=== PATIENT | male | born 1950 ===

== ENCOUNTER 2019-02-27 11:01 | Day surgery (SDC) | payer BC, OTHER ==
[~2019-02-27 11:01] MED LIST: Acetaminophen TAB* 325 MG PO PRN; Buffered Lidocaine 1% SYRIN* 1 ML/SYRINGE INTRADERM ONE; Cyclopentolate 1% OPTH.SOL* 2 ML BTL ONE; Ketorolac 0.5% OPHTH (NF) 0.5 % 5 ML BTL ONE; Lidocaine 1%* 5 ML VIAL ONE; Lidocaine 2% EPI 1:200000 MPF*10-20 ML VIAL ONE; Neomycin/Polymy/Dex OPTH.SUSP* MAXITROL 0.1% 5 ML ONE; Phenylephrine OPHTH SOL 2.5%* 2 ML ONE; Povidone Iodine 5% OPTH* 30 ML BTL ONE; Proparacaine 0.5% OPHTH.SOL* 15 ML BTL ONE; acetaZOLAMIDE TAB* 250 MG ONE
[2019-02-27] MEDS ORDERED: Metoprolol Succinate XL TAB* 100 MG PO ONE (13:34)
[2019-02-27] MEDS ORDERED: Metoprolol Succinate XL TAB* 25 MG ONE (13:37)
[2019-02-27] MEDS ORDERED: Metoprolol Succinate XL TAB* 50 MG ONE (13:37)
[2019-02-27] MEDS ORDERED: Midazolam* 1 MG/ML 2 ML VIAL (2 MG) ONE (13:41)
[2019-02-27 14:29] VITALS: BP 134/81
--- NOTE | 2019-02-27 20:07 | OP ---
DATE OF OPERATION: 02/27/19 - [facility] DATE OF : 54 SURGEON: Scot Terry M.D. PREOPERATIVE DIAGNOSIS: Cataract and glaucoma, left eye. POSTOPERATIVE DIAGNOSIS: Cataract and glaucoma, left eye. OPERATIVE PROCEDURE: Extracapsular cataract extraction with IOL and iStent, left eye. DESCRIPTION OF PROCEDURE: The patient was brought to the operating room after being given 1/2% Alcaine with epinephrine drops in the preoperative area. The eye was prepped and draped in the usual sterile fashion. Sterile drape and eyelid speculum were placed. Again, topical 1/2% Alcaine with epinephrine was given. A paracentesis incision was made at the 3 o'clock position with the No.75 blade. Clear cornea incision 2.2 x 2.2-mm was created at the 6 o'clock position starting at the anterior limbus using the 2.2-mm keratome. The anterior chamber was irrigated with 0.4 mL of 1% non-preservative intracameral lidocaine and filled with DisCoVisc. A capsulorrhexis was completed using the cystotome and the Utrata forceps. Hydrodissection was performed with balanced salt solution. The lens nucleus was removed with the Phacoemulsification handpiece without incident. Cortex was removed with the irrigation-aspiration handpiece. The capsular bag was re-inflated using DisCoVisc and an [id number] 17 implant was inserted with the shooter, oriented to the 180-degree meridian followed by iStent inject placed at the 8 o'clock and 10 o'clock positions. The irrigation-aspiration handpiece was used to remove all residual DisCoVisc. The eye was refilled with balanced salt solution and the wound checked and found to be watertight. Topical Maxitrol drops were given. [id number]/[facility] #: [id number] HUMBERTO
== END 2019-02-27 14:30 | disposition home or self-care (01) ==
LOC: OREAST 11:01
PROVIDERS: ATTEND Specialist
DX: H25.812 Combined forms of age-related cataract, left eye (principal); H40.1131 Primary open-angle glaucoma, bilateral, mild stage; H40.1121 Primary open-angle glaucoma, left eye, mild stage; I48.91 Unspecified atrial fibrillation; Z79.01 Long term (current) use of anticoagulants; I10 Essential (primary) hypertension; E03.9 Hypothyroidism, unspecified; E78.2 Mixed hyperlipidemia; I25.10 Atherosclerotic heart disease of native coronary artery without angina pectoris; I73.9 Peripheral vascular disease, unspecified; G47.33 Obstructive sleep apnea (adult) (pediatric); M19.90 Unspecified osteoarthritis, unspecified site
CPT/HCPCS: A9270-GY; C1783; J2250; V2787

== ENCOUNTER 2019-03-06 07:46 | Day surgery (SDC) | payer BC, OTHER ==
[~2019-03-06 07:46] MED LIST changes: -Cyclopentolate 1% OPTH.SOL* 2 ML BTL ONE; -Ketorolac 0.5% OPHTH (NF) 0.5 % 5 ML BTL ONE; -Lidocaine 1%* 5 ML VIAL ONE; -Lidocaine 2% EPI 1:200000 MPF*10-20 ML VIAL ONE; -Neomycin/Polymy/Dex OPTH.SUSP* MAXITROL 0.1% 5 ML ONE; -Phenylephrine OPHTH SOL 2.5%* 2 ML ONE; -Povidone Iodine 5% OPTH* 30 ML BTL ONE; -Proparacaine 0.5% OPHTH.SOL* 15 ML BTL ONE; -acetaZOLAMIDE TAB* 250 MG ONE
[2019-03-06] MEDS ORDERED: Midazolam* 1 MG/ML 2 ML VIAL (2 MG) ONE (09:42)
[2019-03-06 11:00] VITALS: BP 134/86
--- NOTE | 2019-03-06 12:36 | OP ---
OPERATIVE NOTE: DATE OF OPERATION: 03/06/19 DATE OF : 54 SURGEON: Scot Terry M.D. PREOPERATIVE DIAGNOSIS: Cataract and glaucoma, right eye. POSTOPERATIVE DIAGNOSIS: Cataract and glaucoma, right eye. OPERATIVE PROCEDURE: Extracapsular cataract extraction with intraocular lens implant and iStent, rig ht eye. PROCEDURE: The patient was brought to the operating room after being given 1/2% Alcaine with epineph rine drops in the preoperative area. The eye was prepped and draped in the usual sterile fashion. S terile drape and eyelid speculum were placed. Again, topical 1/2% Alcaine with epinephrine was given . A paracentesis incision was made at the 9 o'clock position with the No.75 blade. Clear cornea inc ision 2.2 x 2.2-mm was created at the 12 o'clock position starting at the anterior limbus using the 2 .2-mm keratome. The anterior chamber was irrigated with 0.4 mL of 1% non-preservative intracameral l idocaine and filled with DisCoVisc. A capsulorrhexis was completed using the cystotome and the Utrat a forceps. Hydrodissection was performed with balanced salt solution. The lens nucleus was removed w ith the Phacoemulsification handpiece without incident. Cortex was removed with the irrigation-aspir ation handpiece. The capsular bag was re-inflated using DisCoVisc and an [id number] 18.5 oriented to the 173 degree meridian followed by an iStent inject placed at the 1 o'clock and 4 o'clock position with its shooter. The patient had horizontal reference alaniz in a seated position in the preoperative are a. The irrigation-aspiration handpiece was used to remove all residual DisCoVisc. The eye was refil led with balanced salt solution and the wound checked and found to be watertight. Topical Maxitrol d rops were given. [id number]/[facility] #: [id number]
[2019-03-06] MEDS ORDERED: Cyclopentolate 1% OPTH.SOL* 2 ML BTL ONE (13:56)
[2019-03-06] MEDS ORDERED: acetaZOLAMIDE TAB* 250 MG ONE (13:56)
[2019-03-06] MEDS ORDERED: Ketorolac 0.5% OPHTH (NF) 0.5 % 5 ML BTL ONE (13:56)
[2019-03-06] MEDS ORDERED: Povidone Iodine 5% OPTH* 30 ML BTL ONE (13:56)
[2019-03-06] MEDS ORDERED: Lidocaine 1%* 5 ML VIAL ONE (13:56)
[2019-03-06] MEDS ORDERED: Phenylephrine OPHTH SOL 2.5%* 2 ML ONE (13:56)
[2019-03-06] MEDS ORDERED: Neomycin/Polymy/Dex OPTH.SUSP* MAXITROL 0.1% 5 ML ONE (13:56)
[2019-03-06] MEDS ORDERED: Proparacaine 0.5% OPHTH.SOL* 15 ML BTL ONE (13:56)
[2019-03-06] MEDS ORDERED: Lidocaine 2% EPI 1:200000 MPF*10-20 ML VIAL ONE (13:56)
== END 2019-03-06 10:53 | disposition home or self-care (01) ==
LOC: OREAST 07:46
PROVIDERS: ATTEND Specialist
DX: H25.811 Combined forms of age-related cataract, right eye (principal); H40.1111 Primary open-angle glaucoma, right eye, mild stage; E03.9 Hypothyroidism, unspecified; E78.00 Pure hypercholesterolemia, unspecified; E11.9 Type 2 diabetes mellitus without complications; Z79.84 Long term (current) use of oral hypoglycemic drugs; Z79.01 Long term (current) use of anticoagulants; I10 Essential (primary) hypertension; I25.10 Atherosclerotic heart disease of native coronary artery without angina pectoris; Z95.5 Presence of coronary angioplasty implant and graft
CPT/HCPCS: A9270-GY; C1783; J2250; V2787

== ENCOUNTER 2019-11-16 17:16 | Emergency (ER) | payer BC ==
--- OUTSIDE RECORDS SUMMARY | 2019-11-16 17:35 | XMS REPORT | Continuity of Care Document ---
:1950 Author Organization [facility] Care Team Providers Name Role Phone ANDRES SALMERON Admitting Physician ANDRES SALMERON Attending Physician KELSY BROWN Primary Care Physician Allergies and Intolerances No Allergy Data in the System Medications No Known Medications Medications At Time Of Discharge No data in the system Problems No Data in the system Procedures No data in the system Results No data in the system Social History Code Code System Social History Observation Description Dates Observed [id number] SNOMED CT Current Smoking Status Never smoker UNK AdministrativeGender Sex Assigned At Unknown Vital Signs No data in the system Goals Section No data in the system Health Concerns No data in the systemEncounter Diagnosis Date Code Code System Diagnosis Status Z95.1 ICD10 [employer] [employer] Active Advance Directives *RHIO - CONSENT IS YES Directive Type Effective Date Bench Hand Machine Notes Supporting Document Name Address Phone No Directive Type 11/19/2015 3:13:52 Not Specified Not Specified Not Specified None No specified PM Encounters Encounter Diagnosis Location Date [facility] 09/12/2019 Family History Family history not obtained Functional Status No data in the system Immunizations No data in the system Medical Equipment No data in the system Mental Status No data in the system Assessment and Plan Assessments No data in the systemPlan Of Treatment No data in the systemPending Tests No data in the system Hospital Discharge Instructions No data in the system Reason for Visit Reason for Visit CABG 08/06/19 Z95.1
--- OUTSIDE RECORDS SUMMARY | 2019-11-16 17:35 | XMS REPORT | Continuity of Care Document ---
:1950 External Reference #:[id number] Author Name Gloria Triana MD Address [address] [place] [address] Care Team Providers Name Role Phone Len Patrick MD Care Team Information Housing And Residence Life Director [phone] Delon Aggarwal MD - Urology Care Team Information Housing And Residence Life Director [phone] Problems Active Problems Provider Date Benign essential hypertension Cricket Chapin MD Onset: 11/11/2005 Hypothyroidism Cricket Chapin MD Onset: 08/09/2006 Mixed hyperlipidemia Cricket Chapin MD Onset: 08/09/2006 Coronary arteriosclerosis Cricket Chapin MD Onset: 08/09/2006 Note: Angioplasty and stenting X 3 in 2000. Angioplasty and stenting LAD in 2004 Peripheral vascular disease Jacki Kent MD Onset: 12/24/2013 Note: TIA (vision loss in right eye) Impaired fasting glycaemia Jcaki Kent MD Onset: 12/24/2013 Morbid obesity Jacki Kent MD Onset: 02/28/2014 Kidney stone Jacki Kent MD Onset: 02/28/2014 Atrial fibrillation Jacki Kent MD Onset: 03/26/2014 Obstructive sleep apnea syndrome Gloria Triana MD Onset: 05/08/2017 Type 2 diabetes mellitus Gloria Triana MD Onset: 01/06/2017 Essential hypertension Jacki Kent MD Onset: 09/28/2015 Social History Type Date Description Comments Sex Unknown Tobacco Use Start: Unknown Never Smoked Cigarettes ETOH Use Occasionally consumes alcohol Recreational Drug Use Never Used Drugs Tobacco Use Start: Unknown Patient has never smoked Smoking Status Reviewed: 10/08/19 Patient has never smoked Exercise Limitations Joint Pain Exercise Limitations With Walking But Does DO Some Sun Exposure moderate amount of sun exposure Sun Exposure Does not use sunscreen Seat Belt/Car Seat never uses car seat Allergies, Adverse Reactions, Alerts Description No Known Drug Allergies Medications Active Medications SIG Qnty Indications Ordering Date Provider Hydrochlorothiazide 1 by mouth every 90caps R60.0 [facility], 12.5mg tu, th, sat, sun MD Brice Pantoja Capsules Multivitamin Adult 1 by mouth every [facility], Tablets day MD Brice Pantoja Amlodipine Besylate 1 by mouth every [facility] 2.[facility] MD Brice Pantoja Tablets Eliquis 1 by mouth twice a 60tabs I48.20 [facility], 5mg Tablets day MD Brice Pantoja Furosemide 1 by mouth 3x/wk 90tabs I25.10 [facility], 40mg Tablets MD Brice Pantoja Metoprolol Tartrate take 1 tablet by 180tabs I48.20 [facility] [place], 25mg mouth twice a day MD Brice Pantoja Tablets Atorvastatin Calcium 1 by mouth every 90tabs E78.2 [facility], 80[facility] day MD Brice Pantoja Tablets O2 AT 2 L n/C [facility], MD Brice Pantoja Shingrix 2 shot series 2units [facility], 50mcg/0.5ML Suspension MD Brice Pantoja Rec Carpal Tunnel Wrist bilat 2units G56.03 [facility], Stabilizer/Large/X-Large MD Brice Pantoja Misc Levothyroxine Sodium 1 by mouth every 90tabs E03.9 [facility], 175mcg other day-alt with MD Brice Pantoja Tablets 200 mcg Qtern 1 po qd 90tabs E11.9 [facility], 10-5mg Tablets MD Brice Pantoja Vascepa 2 by mouth bid. 360caps E78.2 [facility], 1gm Capsules MD Brice Pantoja Diclofenac Sodium apply 1 gram per 300gm M25.552 [facility], 1% Gel joint four times a Gloria M,MD 9 day as needed for pain Dental Evaluation for mad/oat dx: G47.33 [facility], severe gin call Dr Gloria Monroe MD 8 Michael Pismichellerowski Cpap 10 cm G47.33 [facility], Gloria Monroe MD 7 Forearm Band dx: RIGHT medial 1units M77.01 [facility], epicondylitis Gloria Monroe MD 7 Aspirin Ec 1 by mouth every I25.10 [facility], 81mg Tablets DR suzi Monroe MD 7 Levothyroxine Sodium take one tablet by 90tabs E03.9 [facility], 200mcg mouth every other Gloria Monroe MD 7 Tablets day-alt with 175 Nitrotab use as directed 25tabs I25.9 [facility], 0.4mg Tablets MD Cricket 5 I25.10 History Medications Work Note This pt had major [facility] [place], 09/02/2019 - cardiovascular Gloria Monroe MD 10/08/2019 surgery in July and remains unable to work until f/u cardiology 09/16 Ferrous Gluconate 1 by mouth bid 90tabs I25.10 [facility], 08/20/2019 - Gloria Monroe MD 10/08/2019 324(38Fe) mg Tablets Folic Acid 1 by mouth every day 30tabs I25.10 [facility], 08/20/2019 - 1mg Gloria Monroe MD 10/08/2019 Tablets Ascorbic Acid 1 by mouth every day I25.10 [facility] 08/20/2019 - Gloria Monroe MD 10/08/2019 500mg Tablets Amlodipine 1 by mouth every day 30tabs I10 [facility], 08/20/2019 - Besylate Gloria Monroe MD 09/12/2019 5mg Tablets Metoprolol Take One Tablet By 90tabs [facility], 06/13/2019 - Succinate ER Mouth Every Day Gloria Monroe MD 08/20/2019 100mg Tablets ER 24HR Immunizations CPT Code Status Date Vaccine Lot # [id number] Given 07/23/2019 Influenza Vac, Quadrivalent, Split, 0.5mL Dosage, [id number] Im Use 92555 Given 07/23/2019 Prevnar 13 Pneumococal Conjugate Vaccine [id number] 10722 Given 07/23/2018 Influenza Vac, Quadrivalent, Split, 0.5mL Dosage, [id number] Im Use 29493 Given 08/07/2017 Influenza Vac, Quadrivalent, Split, 0.5mL Dosage, [id number] Im Use 16647 Given 08/05/2016 Influenza Vac, Quadrivalent, Split, 0.5mL Dosage, [id number] Im Use 59632 Given 08/28/2015 Influenza Vac, Quadrivalent, Split, 0.5mL Dosage, Im Use 26124 Given 08/28/2015 Influenza Vac, Quadrivalent, Split, 0.5mL Dosage, [id number] Im Use Q2038 Given 08/27/2014 Fluzone Trivalent Immunization [id number] 59765 Given 02/26/2014 Pneumococcal 23 Immunization Adult Or [id number] Immunosuppressed Patient 51991 Given 10/30/2013 Zoster (Zostavax) Q2038 Given 09/10/2013 Fluzone Trivalent Immunization [id number] Q2038 Given 11/07/2012 Fluzone Trivalent Immunization [id number] 16353 Given 05/21/2012 Tdap (Adacel) Ages 7 And Above Only Q2038 Given 08/10/2011 Fluzone Trivalent Immunization [id number] 05697 Given 09/20/2010 Afluria Or Fluvirin Flu Vac Intramuscular [id number] 12418 Given 08/18/2008 Afluria Or Fluvirin Flu Vac Intramuscular [id number] 43999 Given 08/01/2007 Afluria Or Fluvirin Flu Vac Intramuscular 26457 Given 08/01/2007 Influenza, Preservative Free 3 Years And Older 32843 Given 07/25/2003 Afluria Or Fluvirin Flu Vac Intramuscular Vital Signs Date Vital Result Comment 10/08/2019 9:01am Weight 269.00 lb Heart Rate 80 /min BP Systolic 128 mmHg BP Diastolic 82 mmHg Height 68 inches 5'8" BMI (Body Mass Index) 40.9 kg/m2 08/20/2019 10:04am Body Temperature 98.3 F Weight 273.00 lb Heart Rate 76 /min BP Systolic 112 mmHg BP Diastolic 80 mmHg Height 68 inches 5'8" O2 % BldC Oximetry 98 % O2 Saturation Level with Exercise 9296 % BMI (Body Mass Index) 41.5 kg/m2 Results Test Acquired Date Facility Test Result H/L Range Note Laboratory test 10/08/2019 [facility] Hemoglobin A1c <pending> finding Laboratory test 10/08/2019 [facility] TSH <pending> finding Basic (BMP) 07/23/2019 [facility] Sodium 141 mmol/L 135-146 1, 2 Potassium 4.1 mmol/L 3.5-5.2 Chloride# 100 mmol/L 97-110 3 Carbon Dioxide 25 mmol/L 24-34 Glucose 158 mg/dL High 70-105 BUN 18 mg/dL 6-26 Creatinine 1.4 mg/dL 0.5-1.4 Calcium 9.7 mg/dL 8.5-10.5 4 Female Egfr 39 Low >60 5 Male Egfr 53 Low >60 6 Anion Gap 16 mmol/L High 5-15 7 Hemoglobin A1c 07/23/2019 [facility] Hemoglobin A1c 6.8 % High 4.1-5.9 Estimated Average Glucose Calc 148 mg/dL High 71-140 Laboratory test finding 07/23/2019 [facility] TSH 1.08 uIU/mL 0.35-4.94 Basic (BMP) 04/22/2019 [facility] Sodium 144 mmol/L 135-146 8, 9 Potassium 4.9 mmol/L 3.5-5.2 Chloride# 102 mmol/L 97-110 10 Carbon Dioxide 31 mmol/L 24-34 Glucose 131 mg/dL High 70-105 BUN 23 mg/dL 6-26 Creatinine 1.3 mg/dL 0.5-1.4 Calcium 9.9 mg/dL 8.5-10.5 11 Female Egfr 44 Low >60 12 Male Egfr 59 Low >60 13 Anion Gap 11 mmol/L 5-15 14 Hemoglobin A1c 04/22/2019 [facility] Hemoglobin A1c 7.2 % High 4.1-5.9 Estimated Average Glucose Calc 160 mg/dL High 71-140 Lipid Treatment 04/22/2019 [facility] Cholesterol 129 mg/dL 50-199 Triglycerides 270 mg/dL High 30-200 HDL 26 mg/dL Low 29-71 15 Chol/ HDL Ratio 4.9 ratio 4.0-6.7 VLDL 54 mg/dL High 2-29 LDL (Calc) 49 mg/dL 20-99 16 Alt 17 U/L 3-42 Ast 22 U/L 8-42 Laboratory test finding 04/22/2019 [facility] TSH 0.20 uIU/mL Low 0.35-4.94 1 Specimen received unspun 1 SST This sample is drawn by:NB. 2 Updated reference range on new analyzer 3 Updated reference range on new analyzer 4 Updated reference range 02-27-2019 5 Concerning GFR Guidelines for Americans: Normal function or mild renal disease, if clinically at risk: >/= 60 mL/min Moderately decreased: 30-59 Severely decreased: 15-29 Renal failure: <15 There is reduced accuracy above 60ml/min/1.73 m squared, but the numeric value may be clinically useful in the near 60 range 6 Concerning GFR Guidelines: Normal function or mild renal disease, if clinically at risk: >/= 60 mL/min Moderately decreased: 30-59 Severely decreased: 15-29 Renal failure: <15 There is reduced accuracy above 60ml/min/1.73 m squared, but the numeric value may be clinically useful in the near 60 range Glomerular Filtration Rate (GFR) is estimated based on the CKD-EPI equation, which assumes a steady state for creatinine as recommended by the National Kidney Disease Education Program in conjunction with the National Institutes of Health and the National Kidney Foundation. Clinical conditions in which it may be necessary to measure GFR by using clearance methods include extremes of age and body size, severe malnutrition or obesity, diseases of skeletal muscle, paraplegia or quadriplegia, vegetarian diet, rapidly changing kidney function, and calculation of the dose of potentially toxic drugs that are excreted by the kidneys. 7 Updated Reference Range 8 This sample is drawn by:NOLBERTO. 9 Updated reference range on new analyzer 10 Updated reference range on new analyzer 11 Updated reference range 02-27-2019 12 Concerning GFR Guidelines for Americans: Normal function or mild renal disease, if clinically at risk: >/= 60 mL/min Moderately decreased: 30-59 Severely decreased: 15-29 Renal failure: <15 There is reduced accuracy above 60ml/min/1.73 m squared, but the numeric value may be clinically useful in the near 60 range 13 Concerning GFR Guidelines: Normal function or mild renal disease, if clinically at risk: >/= 60 mL/min Moderately decreased: 30-59 Severely decreased: 15-29 Renal failure: <15 There is reduced accuracy above 60ml/min/1.73 m squared, but the numeric value may be clinically useful in the near 60 range Glomerular Filtration Rate (GFR) is estimated based on the CKD-EPI equation, which assumes a steady state for creatinine as recommended by the National Kidney Disease Education Program in conjunction with the National Institutes of Health and the National Kidney Foundation. Clinical conditions in which it may be necessary to measure GFR by using clearance methods include extremes of age and body size, severe malnutrition or obesity, diseases of skeletal muscle, paraplegia or quadriplegia, vegetarian diet, rapidly changing kidney function, and calculation of the dose of potentially toxic drugs that are excreted by the kidneys. 14 Updated Reference Range 2-2017 15 Per NCEP ATP III Guidelines: Results lower than 40 mg/dL are suggestive of increased risk for coronary artery disease. Results > or = to 60 mg/dL are considered a negative risk factor. 16 Per NCEP ATP III Guidelines: Normal Population <130 Patients with medical conditions: CHD/DM Optimal: <100 Borderline high: 130-159 High: 160-189 Very high: >189 Procedures Date Code Description Status 10/10/2013 [id number] Colonoscopy Completed 12/11/2012 [id number] Colonoscopy Completed Medical Devices Description No Information Available Encounters Type Date Location Provider Dx Diagnosis Office Visit 07/23/2019 Gloria Mccullough E66.01 Morbid (severe) 1:00p MD Fer obesity due to excess calories E11.9 Type 2 diabetes mellitus without complications E03.9 Hypothyroidism, unspecified I48.2 Chronic atrial fibrillation E78.2 Mixed hyperlipidemia M25.552 Pain in LEFT hip I10 Essential (primary) hypertension Z13.31 Encounter for screening for depression G56.03 Carpal tunnel syndrome, bilateral upper limbs Z23 Encounter for immunization Z68.41 Body mass index (BMI) 40.0-44.9, adult Office Visit 04/22/2019 2:15p Gloria Mccullough E66.01 Morbid ( severe) MD Fer obesity due to excess calories E11.9 Type 2 diabetes mellitus without complications I25.10 [facility] heart disease [place] coronary artery w/o ang pctrs E78.2 Mixed hyperlipidemia E03.9 Hypothyroidism, unspecified I48.2 Chronic atrial fibrillation I10 Essential (primary) hypertension G47.33 Obstructive sleep apnea (adult) (pediatric) M25.552 Pain in LEFT hip Z68.41 Body mass index (BMI) 40.0-44.9, adult Assessments Date Code Description Provider 10/08/2019 E66.01 Morbid (severe) obesity due to excess Gloria Triana MD calories 10/08/2019 I10 Essential (primary) hypertension Gloria Triana MD 10/08/2019 E11.9 Type 2 diabetes mellitus without Gloria Triana MD complications 10/08/2019 I65.21 Occlusion and stenosis of RIGHT carotid Gloria Triana MD artery 10/08/2019 I25.10 Atherosclerotic heart disease of [place] Gloria Triana MD coronary artery without angina pectoris 10/08/2019 E78.2 Mixed hyperlipidemia Gloria Triana MD 10/08/2019 I48.20 Chronic atrial fibrillation, unspecified Gloria Triana MD 10/08/2019 E03.9 Hypothyroidism, kurtisified Gloria Triana MD 10/08/2019 G47.33 Obstructive sleep apnea (adult) (pediatric) Gloria Triana MD 10/08/2019 R60.0 Localized edema Gloria Triana MD 10/08/2019 Z68.41 Body mass index (BMI) 40.0-44.9, adult Gloria Triana MD 08/20/2019 E66.01 Morbid (severe) obesity due to excess Gloria Triana MD calories 08/20/2019 I65.21 Occlusion and stenosis of RIGHT carotid Gloira Triana MD artery 08/20/2019 I25.10 Atherosclerotic heart disease of [place] Gloria Triana MD coronary artery without angina pectoris 08/20/2019 I48.20 Chronic atrial fibrillation, unspecified Gloria Triana MD 08/20/2019 I10 Essential (primary) hypertension Gloria Triana MD 08/20/2019 E78.2 Mixed hyperlipidemia Gloria Triana MD 08/20/2019 E11.9 Type 2 diabetes mellitus without Gloria Triana MD complications 08/20/2019 Z68.41 Body mass index (BMI) 40.0-44.9, adult Gloria Triana MD 07/23/2019 E66.01 Morbid (severe) obesity due to excess Gloria Triana MD calories 07/23/2019 E11.9 Type 2 diabetes mellitus without Gloria Triana MD complications 07/23/2019 E03.9 Hypothyroidism, kurtisified Gloria Triana MD 07/23/2019 I48.2 Chronic atrial fibrillation Gloria Triana MD 07/23/2019 E78.2 Mixed hyperlipidemia Gloria Triana MD 07/23/2019 M25.552 Pain in LEFT hip Gloria Triana MD 07/23/2019 I10 Essential (primary) hypertension Gloria Triana MD 07/23/2019 Z13.31 Encounter for screening for depression Gloria Triana MD 07/23/2019 G56.03 Carpal tunnel syndrome, bilateral upper Gloria Triana MD limbs 07/23/2019 Z23 Encounter for immunization Gloria Triana MD 07/23/2019 Z68.41 Body mass index (BMI) 40.0-44.9, adult Gloria Triana MD 07/23/2019 E11.9 Type 2 diabetes mellitus without [facility] complications 04/22/2019 E66.01 Morbid (severe) obesity due to excess Gloria Triana MD calories 04/22/2019 E11.9 Type 2 diabetes mellitus without Gloria Triana MD complications 04/22/2019 I25.10 Atherosclerotic heart disease of [place] Gloria Triana MD coronary artery with 04/22/2019 E78.2 Mixed hyperlipidemia Gloria Triana MD 04/22/2019 E03.9 Hypothyroidism, unspecified Gloria Triana MD 04/22/2019 I48.2 Chronic atrial fibrillation Gloria Triana MD 04/22/2019 I10 Essential (primary) hypertension Gloria Triana MD 04/22/2019 G47.33 Obstructive sleep apnea (adult) (pediatric) Gloria Triana MD 04/22/2019 M25.552 Pain in LEFT hip Gloria Triana MD 04/22/2019 Z68.41 Body mass index (BMI) 40.0-44.9, adult Gloria Triana MD 04/22/2019 E11.9 Type 2 diabetes mellitus without [facility] complications 04/22/2019 E03.9 Hypothyroidism, unspecified [facility] Plan of Treatment Future Appointment(s):01/07/2020 1:15 pm - Gloria Triana MD at [id number]/26 1:00 pm - Gloria Triana MD at Ueefbx7510/08/2019 - Gloria Triana MDE66.01 Morbid (severe) obesity due to excess hzkrvuxsZ57 Essential (primary) hypertensionFollow up:3 mos as AWV/EV/PEE11.9 Type 2 diabetes mellitus without webtdoisnbrnbB18.21 Occlusion and stenosis of RIGHT carotid qtxetwK25.10 Atherosclerotic heart disease of [place] coronary artery without angina cvslvkokV27.2 Mixed lqwyvbtmlsweimB66.20 Chronic atrial fibrillation, xgemjtoebwdL91.9 Hypothyroidism, tbsmwcofrxfH42.33 Obstructive sleep apnea ( adult) (pediatric)R60.0 Localized edemaNew Medication:Hydrochlorothiazide 12.5 mg - 1 by mouth every , , sat, sunZ68.41 Body mass index (BMI) 40.0-44.9, adult Functional Status Description No Information Available Mental Status Description No Information Available Referrals Refer to Reason for Referral Status Appt Date Supervising Chef Created Tracking Igor Busby HIP PAIN 07/30-PER TERI AT [facility] THERE IS A FLAG ON Created ACCT AND PT NEEDS TO CALL TO SCHEDULE--PH#[phone]. LVM FOT PT TO CALL OFFICE TO ADVISE-[facility] [address] [place], [place] [address] [phone]
--- OUTSIDE RECORDS SUMMARY | 2019-11-16 17:35 | XMS REPORT | Continuity of Care Document ---
:1950 External Reference #:[id number] Author Name Mya Maynard N.P. (transmitted by agent of provider Ary Zarate) Address [address] [place] [address] Care Team Providers Name Role Phone Gloria Triana MD - Internal Care Team Information Plant Floor Automation Manager [phone] Medicine Aurelio Kasper M.D. - Care Team Information Plant Floor Automation Manager [phone] Cardiovascular Disease Scot Terry MD - Ophthalmology Care Team Information Plant Floor Automation Manager [phone] Problems Active Problems Provider Date Coronary arteriosclerosis Ayaz Alvarado M.D. Onset: 03/05/2014 Dyspnea Ayaz Alvarado M.D. Onset: 03/05/2014 Atrial fibrillation Ayaz Alvarado M.D. Onset: 03/19/2014 Chronic atrial fibrillation Ayaz Alvarado M.D. Onset: 08/06/2015 Difficulty breathing Iris Taveras MD Onset: 02/22/2017 Morbid obesity Iris Taveras MD Onset: 04/28/2017 Obstructive sleep apnea syndrome Iris Taveras MD Onset: 04/28/2017 Social History Type Date Description Comments Sex Unknown Tobacco Use Start: Unknown Never Smoked Cigarettes Pt denies smoking cigarettes, cigar, pipe, or using chewing tobacco. Smoking Status Reviewed: 10/31/19 Never Smoked Cigarettes Pt denies smoking cigarettes, cigar, pipe, or using chewing tobacco. ETOH Use Occasionally consumes maybe once a week beer Tobacco Use Start: Unknown Patient has never smoked Recreational Drug Use Denies Drug Use Exercise Type/Frequency Does not exercise Allergies, Adverse Reactions, Alerts Description No Known Drug Allergies Medications Active Medications SIG Qnty Indications Ordering Date Provider Lane CD 1 by mouth every 30caps I48.91 Mya S. 120mg Caps ER 24HR day Foster, N.P. 0 Eliquis 1 by mouth twice a 180tabs I48.91 Mya S. 5mg Tablets day Foster, N.P. 9 Aspirin 1 by mouth every Unknown 81mg Tablets day 0 Nitrostat one sl q5min up to 25tabs Ayaz Noel 0.4mg Tablets Sub 3 doses as needed Alexandria Alvarado 0 Levothyroxine Sodium 1 by mouth every Unknown 200mcg day 0 Tablets Tylenol 2 by mouth every 4 Unknown 325mg Tablets hours as needed 0 pain Atorvastatin Calcium Take One Tablet By Unknown 80mg Mouth AT Bedtime 0 Tablets Multivitamin+ 1 po daily Unknown 0 Docusate Sodium 1 tab every 12 Unknown 100mg Tablets hours as needed 0 for constipation Metoprolol Tartrate take one tablet by 180tabs Mya S. 25mg mouth twice a day Foster, N.P. 0 Tablets Levothyroxine Sodium 1 tablet po every Unknown 175mcg other day 0 Tablets alternating with 200mcg Qtern 1 tablet po daily Macadam, 10-5mg Tablets Taz Ham MD Take Two Capsules Unknown 1gm Capsules By Mouth Twice A 0 Day Hydrochlorothiazide 1 by mouth daily Unknown 12.5mg 0 Capsules Medications Administered in Office Medication SIG Qnty Indications Ordering Provider Date Technetium TC 99M Ica Nuclear Schedule 07/30/2018 Tetrofosmin, Per Unit Dose Up To 40 Millicuries Injection Inj, Regadenoson, 0.1 MG Adam Gibbs M.D., 07/27/2018 Injection FACADA Curtis Technetium TC 99M Adam Gibbs M.D., 07/27/2018 Tetrofosmin, Per Unit Dose FACC FASRAMILA Up To 40 Millicuries Injection Inj, Regadenoson, 0.1 MG Ayaz Alvarado M.D. 05/11/2015 Injection Inj, Regadenoson, 0.1 MG Jocelyne Angelo M.D. 05/11/2015 Injection Technetium TC 99M Ayaz Alvarado M.D. 05/11/2015 Tetrofosmin, Per Unit Dose Up To 40 Millicuries Injection Technetium TC 99M Jocelyne Angelo M.D. 05/11/2015 Tetrofosmin, Per Unit Dose Up To 40 Millicuries Injection Inj, Regadenoson, 0.1 MG Ayaz Alvarado M.D. 03/19/2014 Injection Technetium TC 99M Ayaz Alvarado M.D. 03/19/2014 Tetrofosmin, Per Unit Dose Up To 40 Millicuries Injection Immunizations Description No Information Available Vital Signs Date Vital Result Comment 10/31/2019 2:17pm Height 68 inches 5'8" Weight 265.00 lb with shoes Heart Rate 60 /min BP Systolic Sitting 105 mmHg lue reg cuff BP Diastolic Sitting 78 mmHg lue reg cuff BP Systolic Standing 108 mmHg lue reg cuff BP Diastolic Standing 68 mmHg lue reg cuff Respiratory Rate 14 /min BMI (Body Mass Index) 40.3 kg/m2 Ejection Fraction 50-55% echo. 08/30/19 09/10/2019 2:15pm Height 68 inches 5'8" Weight 266.00 lb with shoes Heart Rate 60 /min BP Systolic Sitting 90 mmHg Rue lg cuff BP Diastolic Sitting 60 mmHg Rue lg cuff BP Systolic Standing 92 mmHg Rue lg cuff BP Diastolic Standing 64 mmHg Rue lg cuff Respiratory Rate 15 /min BMI (Body Mass Index) 40.4 kg/m2 Results Test Acquired Date Facility Test Result H/L Range Note Inr/Protime 09/09/2019 [facility] Inr 1.38 High 0.82-1.[address] [place] [address] [phone] Inr/Protime 09/03/2019 [facility] Inr 2.76 High 0.82-1.[address] [place] [address] [phone] Inr/Protime 08/29/2019 [facility] Inr 1.80 High 0.82-1.[address] [place], [place] [id number] [phone] Basic Metabolic 08/29/2019 [facility] Sodium 141 mmol/L Normal 135-[address] [place] [address] [phone] Potassium 3.8 mmol/L Normal 3.5-5.0 Chloride 100 mmol/L Low 101-111 Co2 Carbon Dioxide 32 mmol/L Normal 22-32 Anion Gap 9 mmol/L Normal 2-11 Glucose 117 mg/dL High 70-100 Blood Urea Nitrogen 28 mg/dL High 6-24 Creatinine 1.72 mg/dL High 0.67-1.17 BUN/Creatinine Ratio 16.3 Normal 8-20 Calcium 9.9 mg/dL Normal 8.6-10.3 Egfr Non- 39.9 >60 Egfr 48.2 >60 4 1 Standard intensity warfarin therapeutic range: 2.0-3.0 High intensity warfarin therapeutic range: 2.5-3.5 2 Standard intensity warfarin therapeutic range: 2.0-3.0 High intensity warfarin therapeutic range: 2.5-3.5 3 Standard intensity warfarin therapeutic range: 2.0-3.0 High intensity warfarin therapeutic range: 2.5-3.5 4 Because ethnic data is not always readily available, this report includes an eGFR for both -Americans and non- Americans. The National Kidney Disease Education Program (NKDEP) does not endorse the use of the MDRD equation for patients that are not between the ages of 18 and 70, are , have extremes of body size, muscle mass, or nutritional status, or are non- or non-. According to the National Kidney Foundation, irrespective of diagnosis, the stage of the disease is based on the level of kidney function: Stage Description GFR(mL/min/1.73 m(2)) 1 Kidney damage with normal or decreased GFR 90 2 Kidney damage with mild decrease in GFR 60-89 3 Moderate decrease in GFR 30-59 4 Severe decrease in GFR 15-29 5 Kidney failure <15 (or dialysis) Procedures Date Code Description Status 08/30/2019 95474 ECHO Transthoracic, Real-Time 2D With Doppler And Color Completed Flow 08/30/2019 65344 ECHO Transthoracic, Real-Time 2D With Doppler And Color Completed Flow Medical Devices Description No Information Available Encounters Type Date Location Provider Dx Diagnosis Office Visit 09/10/2019 [facility] Mya Maynard, I25.10 [facility] 2:30p Of Loi N.P. disease of [place] coronary artery w/o ang pctrs I73.9 Peripheral vascular disease, unspecified I48.91 Unspecified atrial fibrillation R06.02 Shortness of breath Z98.61 Coronary angioplasty status Office Visit 08/28/2019 1:30p [facility] Ayaz Noel I25.10 [facility] heart Of [place] Alvarado M.D. disease of [place] coronary artery w/o ang pctrs I73.9 Peripheral vascular disease, unspecified I48.91 Unspecified atrial fibrillation Assessments Date Code Description Provider 10/31/2019 I25.10 Atherosclerotic heart disease of [place] Mya S. Foster, N.P. coronary artery without angina pectoris 10/31/2019 I73.9 Peripheral vascular disease, unspecified Mya S. Foster, N.P. 10/31/2019 I48.91 Atrial fibrillation and flutter Mya S. Foster, N.P. 10/31/2019 R06.02 Shortness of breath Mya S. Foster, N.P. 10/31/2019 Z98.61 Coronary angioplasty status Mya S. Foster, N.P. 09/10/2019 I25.10 Atherosclerotic heart disease of [place] Mya S. Foster, N.P. coronary artery without angina pectoris 09/10/2019 I73.9 Peripheral vascular disease, unspecified Mya S. Foster, N.P. 09/10/2019 I48.91 Atrial fibrillation and flutter Mya S. Foster, N.P. 09/10/2019 R06.02 Shortness of breath Mya S. Foster, N.P. 09/10/2019 Z98.61 Coronary angioplasty status Mya S. Foster, N.P. 08/30/2019 I25.10 Atherosclerotic heart disease of [place] Ayaz Alvarado M.D. coronary artery without angina pectoris 08/30/2019 I25.10 Atherosclerotic heart disease of [place] Traveling ECHO 1 coronary artery without angina pectoris 08/28/2019 I25.10 Atherosclerotic heart disease of [place] Ayaz Alvarado M.D. coronary artery with 08/28/2019 I73.9 Peripheral vascular disease, unspecified Ayaz Alvarado M.D. 08/28/2019 I48.91 Atrial fibrillation and flutter Ayaz Alvarado M.D. Plan of Treatment Future Appointment(s):01/01/2020 2:30 pm - Ayaz Alvarado M.D. at [facility]12/03/2019 2:30 pm - Mya Maynard, N.P. at [facility]11/19/2019 9:00 am - Nurse Visit IC at [facility]11/18/2019 9:30 am - Nurse Visit IC at [facility]10/31/2019 - Mya Maynard, N.P.I25.10 Atherosclerotic heart disease of [place] coronary artery without angina cxdammfoP54.9 Peripheral vascular disease, [id number] Atrial fibrillation and flutterNew Medication:Cardizem CD 120 mg - 1 by mouth every dayNew Orders:Holter Monitor, Ordered: Recommendations:STOP Amlodipine START Cardizem 120mg daily.R06.02 Shortness of breathFollow up:reprint labs from 08/2019 SOUMYA Roque after holter. SOUMYA LANGE 2moRecommendations:Increase HCTZ to 12.5mg daily STOP Lasix Have labs drawn waqelR06.61 Coronary angioplasty status Functional Status Functional Condition Comment Date Status Glasses Active Mental Status Description No Information Available Referrals Description No Information Available
--- NOTE | 2019-11-16 18:41 | ED ---
Lower Extremity - HPI Summary HPI Summary: Pt is a 69 y/o M presenting to the ED with a chief complaint of LE edema. He had a CABG done where they grafted some of the vessel in his inner thigh, and the area under the incision is reportedly much more swollen than it has been since the surgery. He also notes brown urine. He denies fever, chills, nausea, vomiting. Medications reviewed. Allergies noted. - History of Current Complaint Chief Complaint: EDSoftTissueLowExtr Stated Complaint: LUMP ON LT THIGH PER Time Seen by Provider: 11/16/19 18:27 Hx Obtained From: Patient Mechanism Of Injury: Other - post surgery Onset of Pain: Days Onset/Duration: Still Present Severity Initially: Moderate Severity Currently: Severe Pain Intensity: 9 Pain Scale Used: 0-10 Numeric Timing: Constant, Lasting Hours, Lasting Days Location: Is Discrete @ - inner thigh Associated Signs And Symptoms: Positive: Swelling. Negative: Fever Aggravating Factor(s): Nothing Alleviating Factor(s): Nothing Able to Bear Weight: Yes - Allergies/Home Medications Allergies/Adverse Reactions: Allergies Allergy/AdvReac Type Severity Reaction Status Date / Time No Known Allergies Allergy Verified 11/16/19 17:21 PMH/Surg Hx/FS Hx/Imm Hx Previously Healthy: Yes Endocrine/Hematology History: Reports: Hx Diabetes - Farxiga, Hx Thyroid Disease - Hypothyroid Cardiovascular History: Reports: Hx Coronary Artery Disease - 8 cardiac stents- 3 different procedures, Hx Hypertension, Other Cardiovascular Problems/ Disorders - Atrial fib Denies: Hx Pacemaker/ICD, Hx Valvular Heart Disease Respiratory History: Reports: Hx Sleep Apnea, Other Respiratory Problems/ Disorders - Hx of pneumonia age 12 GI History: Denies: Other GI Disorders History: Reports: Hx Kidney Infection - NEPHRITIS AGE 13, Hx Kidney Stones - History of-last one 30 years ago-passed on own Denies: Other Problems/Disorders Musculoskeletal History: Reports: Hx Arthritis - Generalized, Other Musculoskeletal History - Left Total Knee Replacement, Right Total Hip replacement Sensory History: Reports: Hx Cataracts - Bilateral, Hx Contacts or Glasses - Glasses, Hx Glaucoma - Bilateral Denies: Hx Hearing Aid Opthamlomology History: Reports: Hx Cataracts - Bilateral, Hx Contacts or Glasses - Glasses, Hx Glaucoma - Bilateral Neurological History: Denies: Other Neuro Impairments/Disorders Psychiatric History: Denies: Hx Panic Disorder - Surgical History Surgery Procedure, Year, and Place: 8 CARDIAC STENTS PLACED OVER 3 PROCDURES. CAROTID STENT. TONSILLECTOMY. RIGHT HIP REPLACEMENT. LEFT KNEE REPLACEMENT Hx Anesthesia Reactions: No Infectious Disease History: No Infectious Disease History: Denies: Traveled Outside the [place] in Last 30 Days - Family History Known Family History: Negative: Renal Disease - Social History Alcohol Use: None Hx Substance Use: No Substance Use Type: Reports: None Hx Tobacco Use: No Smoking Status (MU): Never Smoked Tobacco Review of Systems Negative: Fever, Chills Negative: Vomiting, Nausea Positive: other - brown urine Positive: Edema All Other Systems Reviewed And Are Negative: Yes Physical Exam - Summary Physical Exam Summary: Constitutional: Well-developed, Well-nourished, Alert. (-) Distressed Skin: Warm, Dry HENT: Normocephalic; Atraumatic Eyes: Conjunctiva normal Neck: Musculoskeletal ROM normal neck. (-) JVD, (-) Stridor, (-) Tracheal deviation Cardio: Rhythm regular, rate normal, Heart sounds normal; Intact distal pulses; Radial pulses are 2+ and symmetric. (-) Murmur Pulmonary/Chest wall: Effort normal. (-) Respiratory distress, (-) Wheezes, (-) Rales Abd: Soft, (-) tenderness, (-) Distension, (-) Guarding, (-) Rebound Musculoskeletal: (-) Edema. L thigh with surgical scar present. Large area of erythema to inner thigh with 6x6cm area of induration with no obvious fluctuance. Area is warm and tender. Lymph: (-) Cervical adenopathy Neuro: Alert, Oriented x3 Psych: Mood and affect Normal Triage Information Reviewed: Yes Vital Signs On Initial Exam: Initial Vitals Temp Pulse Resp BP Pulse Ox 97.9 F 94 16 118/72 91 11/16/19 17:18 11/16/19 17:18 11/16/19 17:18 11/16/19 17:18 11/16/19 17:18 Vital Signs Reviewed: Yes Procedures - Sedation Patient Received Moderate/Deep Sedation with Procedure: No - Incision and Drainage Left Medial Proximal Thigh Site: L inner thigh, post-op complications. bloody return Anesthesia: Local, Lidocaine - 6ccs 1% Instrument(s): Scalpel Packing: Other - wrapping Diagnostics - Vital Signs Vital Signs Temp Pulse Resp BP Pulse Ox 11/16/19 17:18 97.9 F 94 16 118/72 91 - Laboratory Result Diagrams: 11/16/19 18:45 11/16/19 18:45 Lab Statement: Any lab studies that have been ordered have been reviewed, and results considered in the medical decision making process. - Ultrasound Soft Tissue US Ultrasound Interpretation Completed By: Radiologist Summary of Ultrasound Findings: Fluid collection in the medial left thigh with some internal septations measuring 8.8 x 6.0 x 4.8 cm which may reflect a seroma or possibly old hematoma. Abscess is not excluded. ED physician has reviewed this report. Lower Extremity Course/Dx - Course Course Of Treatment: Patient is here with erythema to the right thigh with an area of induration. Patient is overall well-appearing with no evidence of sepsis on exam. Patient had one performed which showed a leukocytosis of 15 and an elevated CRP. Patient had ultrasound which showed a possible seroma versus abscess. Patient had incision and drainage of this collection with minimal bloody return. Was given IV clindamycin here. Patient and family were given options of IV inbox overnight when necessary a box at home and they decided on by mouth antibiotics. They're given very strict return precautions and discharged on clindamycin. - Diagnoses Provider Diagnoses: Cellulitis, Infected postoperative seroma Discharge ED - Sign-Out/Discharge Documenting (check all that apply): Patient Departure - Discharge Plan Condition: Stable Disposition: HOME Prescriptions: Clindamycin Cap(NF) [Clindamycin Cap 300 mg Cap(NF)] 300 mg PO Q6H 7 Days #28 cap Patient Education Materials: Cellulitis (ED) Referrals: Gloria Raygoza MD [Primary Care Provider] - 2 Days Additional Instructions: Go to your pharmacy in the morning, hot die picker your antibiotics and take them as instructed. If the redness is worse or spreads toward your penis, testicles, or the area between your penis and your buttocks, or you spike a fever with chills, return to the emergency department. When the numbing medicine wears off, you may have some aching or pain to the area that we attempted to drain tonight. Ibuprofen and Tylenol will help to reduce this pain. Keep the wrap on until your wound stops draining. Have your urine re-tested for infection in 3-5 days when you follow up with your primary care provider. - Billing Disposition and Condition Condition: STABLE Disposition: Home - Attestation Statements Document Initiated by Scribe: Yes Documenting Scribe: Celina Bautista Provider For Whom Ronna is Documenting (Include Credential): Alonso Hanna MD. Scribe Attestation: Celina Houser, scribed for Alonso Hanna MD. on 11/16/19 at 2114. Scribe Documentation Reviewed: Yes Provider Attestation: The documentation as recorded by the laibCelina salcido accurately reflects the service I personally performed and the decisions made by Alonso jansen MD. Status of Scribe Document: Viewed
[2019-11-16 18:50] LABS: ABS Basophils 0.1 10^3/ul (0-0.2); ABS Eosinophils 0.1 10^3/ul (0-0.6); ABS Lymphocytes 1.2 10^3/ul (1.0-4.8); ABS Monocytes 1.2 10^3/ul (0-0.8); ABS Neutrophils 13.2 10^3/ul (1.5-7.7); Eosinophil % 0.4 %; Hematocrit 40 % (42-52); Hemoglobin 13.4 g/dL (14.0-18.0); Lymphocyte % 7.5 %; Mean Corpuscular HGB Conc 34 g/dL (31-36); Mean Corpuscular Hemoglobin 30 pg (27-31); Mean Corpuscular Volume 89 fL (80-94); Mean Platelet Volume 7.8 fL (7.4-10.4); Platelet Count 194 10^3/uL (150-450); Red Blood Count 4.44 10^6 /uL (4.18-5.48); Red Cell Distribution Width 17 % (10-15); White Blood Count 15.8 10^3/uL (3.5-10.8)
[2019-11-16 19:10] LABS: Albumin 3.5 g/dL (3.2-5.2); BUN/Creatinine Ratio 13.7 (8-20); C Reactive Protein 180.9 mg/L (<8.01); Calcium 9.2 mg/dL (8.6-10.3); EGFR African American 52.1 (>60); Globulin 3.4 g/dL (2-4); Potassium 3.4 mmol/L (3.5-5.0); Total Bilirubin 1.3 mg/dL (0.2-1.0); Total Protein 6.9 g/dL (6.4-8.9)
[2019-11-16] MEDS ORDERED: Clindamycin VIAL(*) 450 MG in NS 0.9% 50 ML* 50 ML IVPB ONE (19:28)
[2019-11-16] MEDS ORDERED: Clindamycin 600 MG/D5W BAG(*) 600 MG/50 ML BAG IV ONE (20:00)
[2019-11-16 20:13] LABS: Urine Appearance Cloudy; Urine Bilirubin Negative (Negative); Urine Blood 3+ (Negative); Urine Color Yellow; Urine Glucose 3+(>=500 mg/dL) (Negative); Urine Ketones Negative (Negative); Urine Nitrite Negative (Negative); Urine Protein 1+(30 mg/dL) (Negative); Urine Specific Gravity 1.016 (1.010-1.030); Urine Urobilinogen Negative (Negative)
[2019-11-16 20:16] LABS: Urine Bacteria Absent (Absent); Urine Red Blood Cell 3+(>10/hpf) (Absent); Urine White Blood Cell 1+(6-10/hpf) (Absent)
[2019-11-16] MEDS ORDERED: Lidocaine 1% MPF ** 5 ML VIAL INJ ONE (20:33)
[2019-11-16 21:23] VITALS: BP 111/73
== END 2019-11-16 21:19 | disposition home or self-care (01) ==
LOC: ED 17:16
DX: L03.90 Cellulitis, unspecified (principal); L76.34 Postprocedural seroma of skin and subcutaneous tissue following other procedure; E11.9 Type 2 diabetes mellitus without complications; E03.9 Hypothyroidism, unspecified; I25.10 Atherosclerotic heart disease of native coronary artery without angina pectoris; Z95.5 Presence of coronary angioplasty implant and graft; I10 Essential (primary) hypertension
CPT/HCPCS: 10060; 36415; 80053; 81003; 81015; 85025; 86140; 87086; 96365; 99283

== ENCOUNTER 2020-05-10 19:30 | Inpatient (IN) ==
[2020-05-10 20:15] LABS: ABS Basophils 0.1 10^3/ul (0-0.2); ABS Eosinophils 0.1 10^3/ul (0-0.6); ABS Lymphocytes 1.6 10^3/ul (1.0-4.8); ABS Monocytes 1.1 10^3/ul (0-0.8); ABS Neutrophils 12.7 10^3/ul (1.5-7.7); Eosinophil % 0.6 %; Hematocrit 48 % (42-52); Hemoglobin 16.2 g/dL (14.0-18.0); Mean Corpuscular HGB Conc 34 g/dL (31-36); Mean Corpuscular Hemoglobin 31 pg (27-31); Mean Corpuscular Volume 92 fL (80-94); Mean Platelet Volume 8.1 fL (7.4-10.4); Nucleated Red Blood Cells % 0.1; Platelet Count 246 10^3/uL (150-450); Red Blood Count 5.18 10^6 /uL (4.18-5.48); Red Cell Distribution Width 16 % (10-15); White Blood Count 15.6 10^3/uL (3.5-10.8)
[2020-05-10 20:36] LABS: Albumin 3.6 g/dL (3.2-5.2); BUN/Creatinine Ratio 18.6 (8-20); Calcium 9.1 mg/dL (8.6-10.3); EGFR African American 58.7 (>60); EGFR Non-African American 48.5 (>60); Globulin 3.7 g/dL (2-4); Total Bilirubin 1.2 mg/dL (0.2-1.0); Total Protein 7.3 g/dL (6.4-8.9)
[2020-05-10 20:38] LABS: Troponin I 0.01 ng/mL (<0.03)
[2020-05-10 21:10] LABS: Potassium 3.8 mmol/L (3.5-5.0)
[2020-05-10] MEDS ORDERED: Furosemide 40 mg/4 ml IV VIAL IV ONE (21:15)
[2020-05-10] MEDS ORDERED: Nitro 2% OINT (Nitroglycerin) 1 INCH/PAK TOPICAL ONE (21:16)
[2020-05-10] MEDS ORDERED: Dextrose 50% Syringe 50 ml 25 GM/50 ML SYRINGE IV PUSH PRN (22:10)
[2020-05-11 00:41] LABS: TSH Ultra Thyroid Stim Horm 0.52 mcIU/mL (0.34-5.60)
[2020-05-11 07:59] LABS: CO2 Carbon Dioxide 21 mmol/L (22-32); Calcium 7.7 mg/dL (8.6-10.3); Chloride 107 mmol/L (101-111); Sodium 137 mmol/L (135-145)
[2020-05-11 08:04] LABS: BUN/Creatinine Ratio 19.5 (8-20); Blood Urea Nitrogen 26 mg/dL (6-24); EGFR African American 64.9 (>60); EGFR Non-African American 53.6 (>60); Glucose 113 mg/dL (70-100)
[2020-05-11] MEDS: Furosemide 40 mg/4 ml IV VIAL IV SCH (08:07)
[2020-05-11] MEDS: Vitamin THERAPEUTIC TAB PO SCH (08:07)
[2020-05-11 09:36] LABS: Anion Gap 9 mmol/L (2-11)
[2020-05-11] MEDS ORDERED: Perflutren Lipid Microsphere 3 ML VIAL ONE (14:46)
[2020-05-12 07:13] LABS: Hematocrit 45 % (42-52); Hemoglobin 15.1 g/dL (14.0-18.0); Mean Corpuscular HGB Conc 34 g/dL (31-36); Mean Corpuscular Hemoglobin 31 pg (27-31); Mean Corpuscular Volume 93 fL (80-94); Mean Platelet Volume 8.3 fL (7.4-10.4); Platelet Count 207 10^3/uL (150-450); Red Blood Count 4.83 10^6 /uL (4.18-5.48); Red Cell Distribution Width 16 % (10-15); White Blood Count 14.7 10^3/uL (3.5-10.8)
[2020-05-12] MEDS: Vitamin THERAPEUTIC TAB PO SCH (09:26)
[2020-05-12] MEDS: Furosemide 40 mg/4 ml IV VIAL IV SCH (09:27)
[2020-05-12 10:34] LABS: Calcium 8.3 mg/dL (8.6-10.3); Potassium 3.7 mmol/L (3.5-5.0)
[2020-05-12 10:40] LABS: BUN/Creatinine Ratio 21.4 (8-20); EGFR Non-African American 54.6 (>60)
[2020-05-13 06:50] LABS: Calcium 8.7 mg/dL (8.6-10.3); Potassium 3.6 mmol/L (3.5-5.0)
[2020-05-13 06:55] LABS: BUN/Creatinine Ratio 23.1 (8-20); EGFR African American 75.2 (>60); EGFR Non-African American 62.2 (>60)
[2020-05-13] MEDS: Vitamin THERAPEUTIC TAB PO SCH (09:09)
[2020-05-13] MEDS: Furosemide 40 mg/4 ml IV VIAL IV SCH (09:11)
[2020-05-13 12:31] LABS: % Iron Saturation 16 % (15-55); Iron 43 ug/dL (50-212); Total Iron Binding Capacity 267 mcg/dL (250-450); Transferrin 191 mg/dL (203-362); Unsaturated Iron Binding < 252 ug/dL
[2020-05-13 12:51] LABS: Ferritin 118.2 ng/mL (24-336)
[2020-05-14 07:14] LABS: ABS Eosinophils 0.2 10^3/ul (0-0.6); ABS Lymphocytes 1.8 10^3/ul (1.0-4.8); ABS Monocytes 0.9 10^3/ul (0-0.8); ABS Neutrophils 9.5 10^3/ul (1.5-7.7); Eosinophil % 1.6 %; Hematocrit 46 % (42-52); Hemoglobin 15.8 g/dL (14.0-18.0); Lymphocyte % 14.6 %; Mean Corpuscular HGB Conc 34 g/dL (31-36); Mean Corpuscular Hemoglobin 32 pg (27-31); Mean Corpuscular Volume 92 fL (80-94); Mean Platelet Volume 8.3 fL (7.4-10.4); Platelet Count 239 10^3/uL (150-450); Red Blood Count 4.99 10^6 /uL (4.18-5.48); Red Cell Distribution Width 16 % (10-15); White Blood Count 12.5 10^3/uL (3.5-10.8)
[2020-05-14 07:35] LABS: BUN/Creatinine Ratio 23.2 (8-20); Calcium 8.8 mg/dL (8.6-10.3); EGFR African American 79.1 (>60); EGFR Non-African American 65.4 (>60); Magnesium 1.7 mg/dL (1.9-2.7); Potassium 3.5 mmol/L (3.5-5.0)
[2020-05-14] MEDS: Furosemide 40 mg/4 ml IV VIAL IV SCH (09:28)
[2020-05-14] MEDS: Vitamin THERAPEUTIC TAB PO SCH (09:29)
[2020-05-15] MEDS: Furosemide 40 mg/4 ml IV VIAL IV SCH (10:53)
[2020-05-15] MEDS: Vitamin THERAPEUTIC TAB PO SCH (10:53)
[2020-05-15 15:27] VITALS: BP 102/64
== END 2020-05-15 18:22 | disposition home or self-care (01) | DRG 194 ==
LOC: ED 19:30 → MEDTELE 21:58
PROVIDERS: ADMIT Hospitalist; ATTEND Internal Medicine

== ENCOUNTER 2020-05-26 05:39 | Inpatient (IN) ==
[2020-05-26 06:23] LABS: ABS Eosinophils 0.2 10^3/ul (0-0.6); ABS Monocytes 1.3 10^3/ul (0-0.8); ABS Neutrophils 17.8 10^3/ul (1.5-7.7); Hematocrit 45 % (42-52); Hemoglobin 15.2 g/dL (14.0-18.0); Lymphocyte % 5.1 %; Mean Corpuscular HGB Conc 34 g/dL (31-36); Mean Corpuscular Hemoglobin 31 pg (27-31); Mean Corpuscular Volume 92 fL (80-94); Mean Platelet Volume 8.7 fL (7.4-10.4); Platelet Count 204 10^3/uL (150-450); Red Blood Count 4.88 10^6 /uL (4.18-5.48); Red Cell Distribution Width 16 % (10-15); White Blood Count 20.3 10^3/uL (3.5-10.8)
[2020-05-26 06:34] LABS: Activated Partial Thrombo Time 31.5 seconds (26.0-38.0); INR 1.26 (0.82-1.09)
[2020-05-26 06:40] LABS: Albumin 3.6 g/dL (3.2-5.2); BUN/Creatinine Ratio 16.3 (8-20); Calcium 9.1 mg/dL (8.6-10.3); EGFR African American 63.8 (>60); EGFR Non-African American 52.7 (>60); Globulin 3.6 g/dL (2-4); Potassium 3.7 mmol/L (3.5-5.0); Total Bilirubin 1.3 mg/dL (0.2-1.0); Total Protein 7.2 g/dL (6.4-8.9)
[2020-05-26] MEDS ORDERED: Iodixanol (CONTRAST) 320 MG/ML 100 ML SDV IV ONE (06:41)
[2020-05-26 06:42] LABS: Troponin I 0.02 ng/mL (<0.03)
[2020-05-26] MEDS ORDERED: Azithromycin 500 mg/250 ml NS 500 MG/250 ML BAG IVPB ONE (07:06)
[2020-05-26] MEDS ORDERED: Cefepime 1 GM in Dextrose 1 GM/50 ML BAG IV ONE (07:06)
[2020-05-26] MEDS ORDERED: methylPREDNISolone 125 mg 2 ML VIAL IV ONE (09:15)
[2020-05-26] MEDS ORDERED: Dextrose 50% Syringe 50 ml 25 GM/50 ML SYRINGE IV PUSH PRN (09:51)
[2020-05-26] MEDS ORDERED: Lidocaine PATCH 5% PATCH TRANSDERM SCH (10:00)
[2020-05-26] MEDS ORDERED: Furosemide 40 mg/4 ml IV VIAL IV SLOW PU ONE (13:08)
[2020-05-26] MEDS ORDERED: Piperacillin/Tazobac ADVAN 3.375 GM in NS 0.9% 100 ml BAG 100 ML IVPB ONE (15:56)
[2020-05-26] MEDS: methylPREDNISolone SOD 40 mg/ml 1 ml VIAL IV SCH (16:56)
[2020-05-26] MEDS: Linezolid 600 MG IVPREMIX(*) 600 MG/300 ML BAG IVPB SCH (17:01)
[2020-05-26] MEDS ORDERED: Zosyn per Pharmacy NOTE FOLLOW UP PRN (17:16)
[2020-05-26] MEDS: ZOSYN 3.375 GM Q8H per EXTENDED INFUSION IV SCH (20:29)
[2020-05-26] MEDS: ICOSAPENT ETHYL 1 GM PO SCH (20:32)
[2020-05-26] MEDS ORDERED: Lidocaine Patch REMOVE PATCH PATCH OFF SCH (21:00)
[2020-05-27] MEDS: methylPREDNISolone SOD 40 mg/ml 1 ml VIAL IV SCH ×3 (02:06→17:56)
[2020-05-27] MEDS: Linezolid 600 MG IVPREMIX(*) 600 MG/300 ML BAG IVPB SCH ×2 (04:15→16:46)
[2020-05-27 04:37] LABS: ABS Basophils 0.1 10^3/ul (0-0.2); ABS Lymphocytes 0.7 10^3/ul (1.0-4.8); ABS Monocytes 0.9 10^3/ul (0-0.8); ABS Neutrophils 19.6 10^3/ul (1.5-7.7); Hematocrit 43 % (42-52); Hemoglobin 14.2 g/dL (14.0-18.0); Lymphocyte % 3.2 %; Mean Corpuscular HGB Conc 33 g/dL (31-36); Mean Corpuscular Hemoglobin 31 pg (27-31); Mean Corpuscular Volume 93 fL (80-94); Mean Platelet Volume 8.4 fL (7.4-10.4); Platelet Count 183 10^3/uL (150-450); Red Blood Count 4.61 10^6 /uL (4.18-5.48); Red Cell Distribution Width 16 % (10-15); White Blood Count 21.2 10^3/uL (3.5-10.8)
[2020-05-27 04:48] LABS: Calcium 8.6 mg/dL (8.6-10.3); Potassium 4.2 mmol/L (3.5-5.0)
[2020-05-27 04:54] LABS: BUN/Creatinine Ratio 19.7 (8-20); EGFR African American 53.6 (>60); EGFR Non-African American 44.3 (>60); Phosphorus 3.5 mg/dL (2.5-5.0)
[2020-05-27] MEDS: ZOSYN 3.375 GM Q8H per EXTENDED INFUSION IV SCH ×3 (05:44→21:12)
[2020-05-27] MEDS: Vitamin THERAPEUTIC TAB PO SCH (08:45)
[2020-05-27] MEDS: Azithromycin 500 mg/250 ml NS 500 MG/250 ML BAG IVPB SCH (09:09)
[2020-05-27] MEDS: ICOSAPENT ETHYL 1 GM PO SCH ×2 (12:53→20:59)
[2020-05-27] MEDS: Insulin GLARGINE 100 un/ml 10 ml VIAL SUBCUT SCH (17:55)
[2020-05-28] MEDS: methylPREDNISolone SOD 40 mg/ml 1 ml VIAL IV SCH ×4 (01:28→20:23)
[2020-05-28] MEDS: Linezolid 600 MG IVPREMIX(*) 600 MG/300 ML BAG IVPB SCH (04:10)
[2020-05-28 04:34] LABS: Hematocrit 45 % (42-52); Hemoglobin 14.4 g/dL (14.0-18.0); Mean Corpuscular HGB Conc 32 g/dL (31-36); Mean Corpuscular Hemoglobin 31 pg (27-31); Mean Corpuscular Volume 96 fL (80-94); Mean Platelet Volume 8.6 fL (7.4-10.4); Platelet Count 199 10^3/uL (150-450); Red Blood Count 4.65 10^6 /uL (4.18-5.48); Red Cell Distribution Width 16 % (10-15); White Blood Count 20.9 10^3/uL (3.5-10.8)
[2020-05-28 04:48] LABS: Calcium 8.4 mg/dL (8.6-10.3); EGFR African American 55.6 (>60); Potassium 4.3 mmol/L (3.5-5.0)
[2020-05-28] MEDS: ZOSYN 3.375 GM Q8H per EXTENDED INFUSION IV SCH (05:23)
[2020-05-28] MEDS: Vitamin THERAPEUTIC TAB PO SCH (08:33)
[2020-05-28] MEDS: Azithromycin 500 mg/250 ml NS 500 MG/250 ML BAG IVPB SCH (08:35)
[2020-05-28] MEDS: ICOSAPENT ETHYL 1 GM PO SCH ×2 (08:37→20:13)
[2020-05-28] MEDS ORDERED: Furosemide 40 mg/4 ml IV VIAL IV SLOW PU ONE (08:45)
[2020-05-28 15:05] LABS: Adenovirus Negative (Negative); Bordetella parapertussis Negative (Negative); Bordetella pertussis Negative (Negative); Chlamydophila pneumoniae Negative (Negative); Coronavirus 229E Negative (Negative); Coronavirus HKU1 Negative (Negative); Coronavirus NL63 Negative (Negative); Coronavirus OC43 Negative (Negative); Human Metapneumovirus Negative (Negative); Human Rhinovirus/ Enterovirus Negative (Negative); Influenza A Negative (Negative); Influenza B Negative (Negative); Mycoplasmoides pneumoniae Negative (Negative); Parainfluenza Virus 1 Negative (Negative); Parainfluenza Virus 2 Negative (Negative); Parainfluenza Virus 3 Negative (Negative); Parainfluenza Virus 4 Negative (Negative); Respiratory Syncytial Virus Negative (Negative); Specimen Source NASOPHARYNGEAL SWAB
[2020-05-28] MEDS: Insulin GLARGINE 100 un/ml 10 ml VIAL SUBCUT SCH (17:54)
[2020-05-29 04:43] LABS: ABS Lymphocytes 0.8 10^3/ul (1.0-4.8); ABS Monocytes 0.9 10^3/ul (0-0.8); ABS Neutrophils 16.9 10^3/ul (1.5-7.7); Hematocrit 47 % (42-52); Hemoglobin 15.4 g/dL (14.0-18.0); Lymphocyte % 4.5 %; Mean Corpuscular HGB Conc 33 g/dL (31-36); Mean Corpuscular Hemoglobin 31 pg (27-31); Mean Corpuscular Volume 93 fL (80-94); Mean Platelet Volume 8.5 fL (7.4-10.4); Platelet Count 213 10^3/uL (150-450); Red Blood Count 5.01 10^6 /uL (4.18-5.48); Red Cell Distribution Width 16 % (10-15); White Blood Count 18.7 10^3/uL (3.5-10.8)
[2020-05-29 05:00] LABS: BUN/Creatinine Ratio 27.4 (8-20); Calcium 8.6 mg/dL (8.6-10.3); EGFR African American 70.4 (>60); EGFR Non-African American 58.1 (>60)
[2020-05-29] MEDS: methylPREDNISolone SOD 40 mg/ml 1 ml VIAL IV SCH (08:10)
[2020-05-29] MEDS: Vitamin THERAPEUTIC TAB PO SCH (08:11)
[2020-05-29] MEDS: ICOSAPENT ETHYL 1 GM PO SCH ×2 (08:23→21:06)
[2020-05-29] MEDS: Azithromycin 500 mg/250 ml NS 500 MG/250 ML BAG IVPB SCH (08:29)
[2020-05-29] MEDS ORDERED: Furosemide 40 mg/4 ml IV VIAL IV SLOW PU ONE (11:26)
[2020-05-29] MEDS: Insulin GLARGINE 100 un/ml 10 ml VIAL SUBCUT SCH (17:17)
[2020-05-30] MEDS: ICOSAPENT ETHYL 1 GM PO SCH ×2 (08:01→21:29)
[2020-05-30] MEDS: Vitamin THERAPEUTIC TAB PO SCH (08:19)
[2020-05-30] MEDS: Azithromycin 500 mg/250 ml NS 500 MG/250 ML BAG IVPB SCH (08:24)
[2020-05-30] MEDS ORDERED: Furosemide 40 mg/4 ml IV VIAL IV ONE (13:14)
[2020-05-30] MEDS: Insulin GLARGINE 100 un/ml 10 ml VIAL SUBCUT SCH (16:49)
[2020-05-31 08:43] LABS: ABS Eosinophils 0.2 10^3/ul (0-0.6); ABS Lymphocytes 1.3 10^3/ul (1.0-4.8); ABS Neutrophils 12.5 10^3/ul (1.5-7.7); Eosinophil % 1.1 %; Hematocrit 44 % (42-52); Mean Corpuscular HGB Conc 34 g/dL (31-36); Mean Corpuscular Hemoglobin 31 pg (27-31); Mean Corpuscular Volume 92 fL (80-94); Mean Platelet Volume 8.2 fL (7.4-10.4); Platelet Count 182 10^3/uL (150-450); Red Blood Count 4.78 10^6 /uL (4.18-5.48); Red Cell Distribution Width 16 % (10-15)
[2020-05-31 08:58] LABS: Calcium 8.6 mg/dL (8.6-10.3); EGFR African American 81.6 (>60); EGFR Non-African American 67.5 (>60); Potassium 3.6 mmol/L (3.5-5.0)
[2020-05-31] MEDS: Azithromycin 500 mg/250 ml NS 500 MG/250 ML BAG IVPB SCH (09:56)
[2020-05-31] MEDS: ICOSAPENT ETHYL 1 GM PO SCH ×2 (09:56→21:39)
[2020-05-31] MEDS: Vitamin THERAPEUTIC TAB PO SCH (09:56)
[2020-05-31] MEDS ORDERED: Furosemide 40 mg/4 ml IV VIAL IV ONE (13:27)
[2020-05-31] MEDS: methylPREDNISolone SOD 40 mg/ml 1 ml VIAL IV SCH (14:39)
[2020-05-31] MEDS: Insulin GLARGINE 100 un/ml 10 ml VIAL SUBCUT SCH (17:58)
[2020-05-31] MEDS ORDERED: methylPREDNISolone SOD 40 mg/ml 1 ml VIAL IV ONE (21:15)
[2020-05-31] MEDS ORDERED: methylPREDNISolone SOD 40 mg/ml 1 ml VIAL ONE (21:19)
[2020-06-01 05:22] LABS: ABS Lymphocytes 0.6 10^3/ul (1.0-4.8); ABS Monocytes 0.4 10^3/ul (0-0.8); ABS Neutrophils 16.1 10^3/ul (1.5-7.7); Eosinophil % 0.1 %; Hematocrit 42 % (42-52); Hemoglobin 14.2 g/dL (14.0-18.0); Lymphocyte % 3.6 %; Mean Corpuscular HGB Conc 34 g/dL (31-36); Mean Corpuscular Hemoglobin 31 pg (27-31); Mean Corpuscular Volume 92 fL (80-94); Mean Platelet Volume 8.4 fL (7.4-10.4); Platelet Count 187 10^3/uL (150-450); Red Cell Distribution Width 16 % (10-15); White Blood Count 17.1 10^3/uL (3.5-10.8)
[2020-06-01 05:37] LABS: BUN/Creatinine Ratio 24.8 (8-20); Calcium 8.6 mg/dL (8.6-10.3); EGFR African American 75.2 (>60); EGFR Non-African American 62.2 (>60); Potassium 4.1 mmol/L (3.5-5.0)
[2020-06-01] MEDS: Vitamin THERAPEUTIC TAB PO SCH (08:12)
[2020-06-01] MEDS: Furosemide 40 mg/4 ml IV VIAL IV SCH (08:13)
[2020-06-01] MEDS: methylPREDNISolone SOD 40 mg/ml 1 ml VIAL IV SCH ×3 (08:13→17:31)
[2020-06-01] MEDS: Azithromycin 500 mg/250 ml NS 500 MG/250 ML BAG IVPB SCH (08:20)
[2020-06-01] MEDS: ICOSAPENT ETHYL 1 GM PO SCH ×2 (08:26→21:44)
[2020-06-01] MEDS: Insulin GLARGINE 100 un/ml 10 ml VIAL SUBCUT SCH (17:34)
[2020-06-02] MEDS: methylPREDNISolone SOD 40 mg/ml 1 ml VIAL IV SCH ×3 (00:15→17:19)
[2020-06-02 04:50] LABS: ABS Lymphocytes 0.7 10^3/ul (1.0-4.8); ABS Monocytes 0.6 10^3/ul (0-0.8); ABS Neutrophils 17.5 10^3/ul (1.5-7.7); Hematocrit 42 % (42-52); Hemoglobin 14.2 g/dL (14.0-18.0); Lymphocyte % 3.7 %; Mean Corpuscular HGB Conc 34 g/dL (31-36); Mean Corpuscular Hemoglobin 31 pg (27-31); Mean Corpuscular Volume 91 fL (80-94); Mean Platelet Volume 8.3 fL (7.4-10.4); Platelet Count 197 10^3/uL (150-450); Red Cell Distribution Width 16 % (10-15); White Blood Count 18.8 10^3/uL (3.5-10.8)
[2020-06-02 05:00] LABS: Calcium 8.4 mg/dL (8.6-10.3); Potassium 4.1 mmol/L (3.5-5.0)
[2020-06-02 05:06] LABS: EGFR African American 80.8 (>60); EGFR Non-African American 66.8 (>60)
[2020-06-02] MEDS: Azithromycin 500 mg/250 ml NS 500 MG/250 ML BAG IVPB SCH (08:38)
[2020-06-02] MEDS: Furosemide 40 mg/4 ml IV VIAL IV SCH (08:38)
[2020-06-02] MEDS: Vitamin THERAPEUTIC TAB PO SCH (08:39)
[2020-06-02] MEDS: ICOSAPENT ETHYL 1 GM PO SCH ×2 (08:39→21:24)
[2020-06-02] MEDS ORDERED: BUMETANIDE IV SCH ×2 (10:00→10:30)
[2020-06-02] MEDS: Insulin GLARGINE 100 un/ml 10 ml VIAL SUBCUT SCH (17:19)
[2020-06-03] MEDS: methylPREDNISolone SOD 40 mg/ml 1 ml VIAL IV SCH ×3 (00:49→17:02)
[2020-06-03 06:02] LABS: ABS Basophils 0.1 10^3/ul (0-0.2); ABS Lymphocytes 0.5 10^3/ul (1.0-4.8); ABS Monocytes 0.7 10^3/ul (0-0.8); ABS Neutrophils 15.8 10^3/ul (1.5-7.7); Hematocrit 42 % (42-52); Hemoglobin 14.2 g/dL (14.0-18.0); Lymphocyte % 3.2 %; Mean Corpuscular HGB Conc 34 g/dL (31-36); Mean Corpuscular Hemoglobin 31 pg (27-31); Mean Corpuscular Volume 91 fL (80-94); Mean Platelet Volume 8.5 fL (7.4-10.4); Platelet Count 209 10^3/uL (150-450); Red Blood Count 4.56 10^6 /uL (4.18-5.48); Red Cell Distribution Width 16 % (10-15)
[2020-06-03 06:05] LABS: CO2 Carbon Dioxide 31 mmol/L (22-32); Calcium 8.4 mg/dL (8.6-10.3); Chloride 99 mmol/L (101-111); Sodium 134 mmol/L (135-145)
[2020-06-03 06:11] LABS: ALT 27 U/L (7-52); Albumin/Globulin Ratio 1.1 (1-3); Alkaline Phosphatase 76 U/L (34-104); Blood Urea Nitrogen 33 mg/dL (6-24); EGFR African American 74.5 (>60); EGFR Non-African American 61.6 (>60); Globulin 2.8 g/dL (2-4); Glucose 172 mg/dL (70-100); Total Protein 5.8 g/dL (6.4-8.9)
[2020-06-03 06:24] LABS: Anion Gap 4 mmol/L (2-11)
[2020-06-03 06:59] LABS: Potassium Redraw 4.3 mmol/L (3.5-5.0)
[2020-06-03] MEDS: ICOSAPENT ETHYL 1 GM PO SCH ×2 (07:40→21:32)
[2020-06-03] MEDS ORDERED: Furosemide 20 mg/2 ml IV VIAL ONE (09:09)
[2020-06-03] MEDS: Vitamin THERAPEUTIC TAB PO SCH (09:15)
[2020-06-03] MEDS: Furosemide 100 mg/10 ml IV 100 MG in NS 0.9% 100 ml BAG 90 ML IV SCH ×2 (10:04→14:41)
[2020-06-03] MEDS ORDERED: Potassium Chloride LIQUID 20 MEQ/15 ML LIQUID PO ONE (14:16)
[2020-06-03] MEDS: Insulin GLARGINE 100 un/ml 10 ml VIAL SUBCUT SCH (17:03)
[2020-06-04] MEDS: methylPREDNISolone SOD 40 mg/ml 1 ml VIAL IV SCH ×3 (00:18→18:04)
[2020-06-04 05:54] LABS: ABS Lymphocytes 0.5 10^3/ul (1.0-4.8); ABS Monocytes 0.7 10^3/ul (0-0.8); Eosinophil % 0.2 %; Hematocrit 45 % (42-52); Hemoglobin 15.2 g/dL (14.0-18.0); Lymphocyte % 3.3 %; Mean Corpuscular HGB Conc 34 g/dL (31-36); Mean Corpuscular Hemoglobin 31 pg (27-31); Mean Corpuscular Volume 92 fL (80-94); Mean Platelet Volume 8.3 fL (7.4-10.4); Platelet Count 216 10^3/uL (150-450); Red Blood Count 4.86 10^6 /uL (4.18-5.48); Red Cell Distribution Width 16 % (10-15); White Blood Count 16.2 10^3/uL (3.5-10.8)
[2020-06-04 06:12] LABS: Albumin 3.2 g/dL (3.2-5.2); Albumin/Globulin Ratio 1.1 (1-3); BUN/Creatinine Ratio 26.9 (8-20); Calcium 9.1 mg/dL (8.6-10.3); EGFR African American 66.6 (>60); EGFR Non-African American 55.1 (>60); Globulin 2.9 g/dL (2-4); Potassium 4.4 mmol/L (3.5-5.0); Total Bilirubin 1.2 mg/dL (0.2-1.0); Total Protein 6.1 g/dL (6.4-8.9)
[2020-06-04] MEDS: Vitamin THERAPEUTIC TAB PO SCH (08:19)
[2020-06-04] MEDS: ICOSAPENT ETHYL 1 GM PO SCH ×2 (08:19→20:40)
[2020-06-04] MEDS: Insulin GLARGINE 100 un/ml 10 ml VIAL SUBCUT SCH (18:04)
[2020-06-05] MEDS: methylPREDNISolone SOD 40 mg/ml 1 ml VIAL IV SCH ×2 (00:37→09:46)
[2020-06-05] MEDS: Vitamin THERAPEUTIC TAB PO SCH (09:46)
[2020-06-05] MEDS: ICOSAPENT ETHYL 1 GM PO SCH ×2 (09:48→21:51)
[2020-06-05] MEDS: Insulin GLARGINE 100 un/ml 10 ml VIAL SUBCUT SCH (09:55)
[2020-06-05 12:09] LABS: ABS Lymphocytes 0.5 10^3/ul (1.0-4.8); ABS Monocytes 0.9 10^3/ul (0-0.8); Hematocrit 48 % (42-52); Hemoglobin 15.9 g/dL (14.0-18.0); Lymphocyte % 2.3 %; Mean Corpuscular HGB Conc 33 g/dL (31-36); Mean Corpuscular Hemoglobin 31 pg (27-31); Mean Corpuscular Volume 93 fL (80-94); Mean Platelet Volume 8.6 fL (7.4-10.4); Platelet Count 204 10^3/uL (150-450); Red Blood Count 5.19 10^6 /uL (4.18-5.48); Red Cell Distribution Width 16 % (10-15); White Blood Count 20.4 10^3/uL (3.5-10.8)
[2020-06-05 13:05] LABS: Calcium 9.1 mg/dL (8.6-10.3); Potassium 4.6 mmol/L (3.5-5.0)
[2020-06-05 13:11] LABS: BUN/Creatinine Ratio 27.9 (8-20); EGFR Non-African American 66.1 (>60); Phosphorus 2.8 mg/dL (2.5-5.0)
[2020-06-05] MEDS ORDERED: Bumetanide IV 0.25 MG/ML 4 ml VIAL (1 mg) SLOW PUSH ONE (15:35)
[2020-06-05] MEDS ORDERED: methylPREDNISolone SOD 40 mg/ml 1 ml VIAL IV SCH (21:00)
[2020-06-06 04:43] LABS: ABS Lymphocytes 0.6 10^3/ul (1.0-4.8); ABS Monocytes 0.7 10^3/ul (0-0.8); ABS Neutrophils 19.7 10^3/ul (1.5-7.7); Eosinophil % 0.1 %; Hematocrit 46 % (42-52); Hemoglobin 15.1 g/dL (14.0-18.0); Lymphocyte % 2.9 %; Mean Corpuscular HGB Conc 33 g/dL (31-36); Mean Corpuscular Hemoglobin 31 pg (27-31); Mean Corpuscular Volume 92 fL (80-94); Mean Platelet Volume 8.3 fL (7.4-10.4); Platelet Count 192 10^3/uL (150-450); Red Blood Count 4.92 10^6 /uL (4.18-5.48); Red Cell Distribution Width 16 % (10-15); White Blood Count 21.1 10^3/uL (3.5-10.8)
[2020-06-06 04:59] LABS: Albumin 2.9 g/dL (3.2-5.2); Albumin/Globulin Ratio 1.1 (1-3); BUN/Creatinine Ratio 30.7 (8-20); Calcium 8.8 mg/dL (8.6-10.3); EGFR African American 89.2 (>60); EGFR Non-African American 73.7 (>60); Globulin 2.7 g/dL (2-4); Potassium 4.4 mmol/L (3.5-5.0); Total Bilirubin 1.4 mg/dL (0.2-1.0); Total Protein 5.6 g/dL (6.4-8.9)
[2020-06-06] MEDS: Insulin GLARGINE 100 un/ml 10 ml VIAL SUBCUT SCH (08:52)
[2020-06-06] MEDS: Vitamin THERAPEUTIC TAB PO SCH (08:53)
[2020-06-06] MEDS ORDERED: Bumetanide IV 0.25 MG/ML 4 ml VIAL (1 mg) SLOW PUSH ONE (09:00)
[2020-06-06] MEDS: ICOSAPENT ETHYL 1 GM PO SCH ×2 (10:34→21:02)
[2020-06-07 05:38] LABS: ABS Basophils 0.1 10^3/ul (0-0.2); ABS Eosinophils 0.1 10^3/ul (0-0.6); ABS Lymphocytes 1.5 10^3/ul (1.0-4.8); ABS Monocytes 1.1 10^3/ul (0-0.8); ABS Neutrophils 16.1 10^3/ul (1.5-7.7); Eosinophil % 0.5 %; Hematocrit 42 % (42-52); Hemoglobin 14.4 g/dL (14.0-18.0); Mean Corpuscular HGB Conc 35 g/dL (31-36); Mean Corpuscular Hemoglobin 32 pg (27-31); Mean Corpuscular Volume 92 fL (80-94); Mean Platelet Volume 8.6 fL (7.4-10.4); Platelet Count 165 10^3/uL (150-450); Red Blood Count 4.57 10^6 /uL (4.18-5.48); Red Cell Distribution Width 16 % (10-15); White Blood Count 18.9 10^3/uL (3.5-10.8)
[2020-06-07 05:54] LABS: Albumin 2.8 g/dL (3.2-5.2); BUN/Creatinine Ratio 28.4 (8-20); Calcium 8.4 mg/dL (8.6-10.3); EGFR Non-African American 62.8 (>60); Globulin 2.7 g/dL (2-4); Potassium 3.8 mmol/L (3.5-5.0); Total Bilirubin 1.3 mg/dL (0.2-1.0); Total Protein 5.5 g/dL (6.4-8.9)
[2020-06-07] MEDS: Insulin GLARGINE 100 un/ml 10 ml VIAL SUBCUT SCH (08:57)
[2020-06-07] MEDS: Vitamin THERAPEUTIC TAB PO SCH (08:57)
[2020-06-07] MEDS: ICOSAPENT ETHYL 1 GM PO SCH ×2 (11:55→19:57)
[2020-06-08 05:51] LABS: ABS Eosinophils 0.1 10^3/ul (0-0.6); ABS Lymphocytes 1.5 10^3/ul (1.0-4.8); ABS Monocytes 1.1 10^3/ul (0-0.8); ABS Neutrophils 17.6 10^3/ul (1.5-7.7); Eosinophil % 0.5 %; Hematocrit 45 % (42-52); Lymphocyte % 7.5 %; Mean Corpuscular HGB Conc 33 g/dL (31-36); Mean Corpuscular Hemoglobin 31 pg (27-31); Mean Corpuscular Volume 92 fL (80-94); Mean Platelet Volume 8.3 fL (7.4-10.4); Platelet Count 181 10^3/uL (150-450); Red Blood Count 4.89 10^6 /uL (4.18-5.48); Red Cell Distribution Width 16 % (10-15); White Blood Count 20.4 10^3/uL (3.5-10.8)
[2020-06-08 06:14] LABS: BUN/Creatinine Ratio 28.1 (8-20); Calcium 8.6 mg/dL (8.6-10.3); EGFR African American 67.8 (>60); EGFR Non-African American 56.1 (>60); Globulin 2.9 g/dL (2-4); Potassium 3.8 mmol/L (3.5-5.0); Total Bilirubin 1.3 mg/dL (0.2-1.0); Total Protein 5.9 g/dL (6.4-8.9)
[2020-06-08] MEDS: ICOSAPENT ETHYL 1 GM PO SCH ×2 (09:34→21:03)
[2020-06-08] MEDS: Vitamin THERAPEUTIC TAB PO SCH (10:01)
[2020-06-08] MEDS: Insulin GLARGINE 100 un/ml 10 ml VIAL SUBCUT SCH (10:37)
[2020-06-09] MEDS: Vitamin THERAPEUTIC TAB PO SCH (08:43)
[2020-06-09] MEDS: Insulin GLARGINE 100 un/ml 10 ml VIAL SUBCUT SCH (08:43)
[2020-06-09] MEDS: ICOSAPENT ETHYL 1 GM PO SCH ×2 (08:46→20:56)
[2020-06-09 09:32] LABS: Hematocrit 45 % (42-52); Mean Corpuscular HGB Conc 34 g/dL (31-36); Mean Corpuscular Hemoglobin 31 pg (27-31); Mean Corpuscular Volume 92 fL (80-94); Mean Platelet Volume 8.7 fL (7.4-10.4); Platelet Count 170 10^3/uL (150-450); Red Blood Count 4.84 10^6 /uL (4.18-5.48); Red Cell Distribution Width 16 % (10-15); White Blood Count 22.3 10^3/uL (3.5-10.8)
[2020-06-09 09:53] LABS: Albumin 3.2 g/dL (3.2-5.2); Albumin/Globulin Ratio 1.1 (1-3); BUN/Creatinine Ratio 25.2 (8-20); Calcium 8.5 mg/dL (8.6-10.3); EGFR African American 83.4 (>60); EGFR Non-African American 68.9 (>60); Total Bilirubin 1.6 mg/dL (0.2-1.0); Total Protein 6.2 g/dL (6.4-8.9)
[2020-06-09 10:21] LABS: ABS Basophils 0.1 10^3/ul (0-0.2); ABS Eosinophils 0.1 10^3/ul (0-0.6); ABS Lymphocytes 1.6 10^3/ul (1.0-4.8); ABS Monocytes 1.1 10^3/ul (0-0.8); ABS Neutrophils 19.4 10^3/ul (1.5-7.7); Eosinophil % 0.6 %; Lymphocyte % 7.2 %
[2020-06-09] MEDS ORDERED: Vancomycin 2,000 MG in NS 0.9% 500 ml BAG 500 ML IVPB ONE (11:35)
[2020-06-09] MEDS: methylPREDNISolone SOD 40 mg/ml 1 ml VIAL IV SCH ×2 (11:59→23:30)
[2020-06-09] MEDS ORDERED: ZOSYN 3.375 GM x ONE DOSE over 30 miuntes IV (12:00)
[2020-06-09] MEDS ORDERED: Bumetanide IV 0.25 MG/ML 4 ml VIAL (1 mg) SLOW PUSH ONE (12:00)
[2020-06-09] MEDS: Piperacillin/Tazobac ADVAN 3.375 GM in NS 0.9% 100 ml BAG 100 ML IV SCH ×2 (16:00→23:30)
[2020-06-10] MEDS: Vancomycin 1,250 MG in NS 0.9% 250 ml 250 ML IV SCH ×2 (05:32→18:34)
[2020-06-10 06:51] LABS: Hematocrit 42 % (42-52); Mean Corpuscular HGB Conc 33 g/dL (31-36); Mean Corpuscular Hemoglobin 31 pg (27-31); Mean Corpuscular Volume 93 fL (80-94); Mean Platelet Volume 9.1 fL (7.4-10.4); Platelet Count 156 10^3/uL (150-450); Red Blood Count 4.54 10^6 /uL (4.18-5.48); Red Cell Distribution Width 16 % (10-15); White Blood Count 21.3 10^3/uL (3.5-10.8)
[2020-06-10 07:02] LABS: Albumin/Globulin Ratio 1.2 (1-3); BUN/Creatinine Ratio 24.2 (8-20); Calcium 8.5 mg/dL (8.6-10.3); EGFR African American 65.5 (>60); EGFR Non-African American 54.1 (>60); Globulin 2.6 g/dL (2-4); Potassium 4.1 mmol/L (3.5-5.0); Total Bilirubin 1.6 mg/dL (0.2-1.0); Total Protein 5.6 g/dL (6.4-8.9)
[2020-06-10 08:01] LABS: ABS Lymphocytes 0.5 10^3/ul (1.0-4.8); ABS Monocytes 0.7 10^3/ul (0-0.8); ABS Neutrophils 20.1 10^3/ul (1.5-7.7); Lymphocyte % 2.1 %
[2020-06-10] MEDS: Piperacillin/Tazobac ADVAN 3.375 GM in NS 0.9% 100 ml BAG 100 ML IV SCH ×2 (08:19→17:03)
[2020-06-10] MEDS: Insulin GLARGINE 100 un/ml 10 ml VIAL SUBCUT SCH (08:19)
[2020-06-10] MEDS: ICOSAPENT ETHYL 1 GM PO SCH ×2 (08:20→20:25)
[2020-06-10] MEDS: Vitamin THERAPEUTIC TAB PO SCH (08:20)
[2020-06-10] MEDS ORDERED: Iodixanol (CONTRAST) 320 MG/ML 100 ML SDV IV ONE (11:06)
[2020-06-10] MEDS: methylPREDNISolone SOD 40 mg/ml 1 ml VIAL IV SCH (12:03)
[2020-06-11] MEDS: methylPREDNISolone SOD 40 mg/ml 1 ml VIAL IV SCH ×2 (00:24→13:32)
[2020-06-11] MEDS: Piperacillin/Tazobac ADVAN 3.375 GM in NS 0.9% 100 ml BAG 100 ML IV SCH ×3 (00:24→18:46)
[2020-06-11 05:21] LABS: ABS Basophils 0.1 10^3/ul (0-0.2); ABS Lymphocytes 0.4 10^3/ul (1.0-4.8); ABS Monocytes 1.2 10^3/ul (0-0.8); ABS Neutrophils 23.6 10^3/ul (1.5-7.7); Eosinophil % 0.1 %; Hematocrit 41 % (42-52); Hemoglobin 13.7 g/dL (14.0-18.0); Lymphocyte % 1.7 %; Mean Corpuscular HGB Conc 33 g/dL (31-36); Mean Corpuscular Hemoglobin 31 pg (27-31); Mean Corpuscular Volume 93 fL (80-94); Platelet Count 152 10^3/uL (150-450); Red Blood Count 4.41 10^6 /uL (4.18-5.48); Red Cell Distribution Width 16 % (10-15); White Blood Count 25.3 10^3/uL (3.5-10.8)
[2020-06-11] MEDS ORDERED: Vancomycin Trough Check NOTE FOLLOW UP ONE (05:30)
[2020-06-11 05:32] LABS: Vancomycin Trough 15.2 mcg/mL
[2020-06-11 05:36] LABS: Calcium 8.6 mg/dL (8.6-10.3); Potassium 4.4 mmol/L (3.5-5.0); Total Bilirubin 1.6 mg/dL (0.2-1.0)
[2020-06-11 05:42] LABS: Albumin/Globulin Ratio 1.1 (1-3); BUN/Creatinine Ratio 25.9 (8-20); EGFR Non-African American 62.8 (>60); Globulin 2.8 g/dL (2-4); Total Protein 5.8 g/dL (6.4-8.9)
[2020-06-11] MEDS: Vancomycin 1,250 MG in NS 0.9% 250 ml 250 ML IV SCH (05:50)
[2020-06-11] MEDS: Insulin GLARGINE 100 un/ml 10 ml VIAL SUBCUT SCH (08:15)
[2020-06-11] MEDS: Vitamin THERAPEUTIC TAB PO SCH (08:15)
[2020-06-11] MEDS: ICOSAPENT ETHYL 1 GM PO SCH ×2 (08:17→22:25)
[2020-06-11 08:29] VITALS: BP 124/74
[2020-06-11] MEDS ORDERED: Vancomycin per Pharmacy 1 EA NOTE FOLLOW UP PRN (09:19)
[2020-06-11] MEDS ORDERED: Furosemide 20 mg/2 ml IV VIAL IV ONE (09:36)
[2020-06-11] MEDS ORDERED: Morphine 4 MG/ML VIAL (1 ml) IV ONE (11:23)
[2020-06-11] MEDS ORDERED: [UNRECOGNIZED DRUG - REMARK] IV SCH (12:00)
[2020-06-11] MEDS ORDERED: Morphine PCA ADULT 5 MG/ML 30 ML PCA SCH (12:30)
[2020-06-11] MEDS: Morphine 2 MG/ML SYRINGE IV PRN ×2 (16:27→17:37)
[2020-06-11] MEDS ORDERED: Propofol 10 mg/ml 100 ML BTL 100 ML IV SCH (21:00)
[2020-06-11] MEDS ORDERED: Chlorhexidine MOUTHWASH 0.12% 15 ML UDC TOPICAL SCH (21:00)
[2020-06-12] MEDS: methylPREDNISolone SOD 40 mg/ml 1 ml VIAL IV SCH (01:11)
[2020-06-14] MEDS ORDERED: Vancomycin Trough Check NOTE FOLLOW UP ONE (05:30)
== END 2020-06-12 06:59 | disposition expired | DRG 720 ==
LOC: ED 05:39 → ICU 12:20 → MED 05-29 11:26 → ICU 05-31 21:17
PROVIDERS: ADMIT Internal Medicine; ATTEND Internal Medicine